=== PATIENT | male | born 1940 | race Caucasian/White ===

== ENCOUNTER 2019-08-01 08:29 | Day surgery (SDC) | payer OTHER ==
[~2019-08-01] VITALS: Ht 172.7 cm; Wt 90.7 kg
--- NOTE | ~2019-08-01 | O ---
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 PROCEDURE: Bilateral lower lid ectropion repair with transconjunctival left lower lid and cheek lift. SURGEON: Elmer Azevedo MD CONFIGURATION MANAGEMENT ADVISOR: None. ANESTHESIA: MAC. COMPLICATIONS: None. 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 He presents today for a bilateral lower lid procedure in conjunction with a left cheek procedure in order to improve his ocular surface milieu. Informed consent was obtained to include but not limited to the potential risk for loss of vision, bleeding, infection, failure to improve the problem, the potential need for further surgery or treatment. DESCRIPTION OF PROCEDURE: The patient was taken to the operating room where 2% Xylocaine with epinephrine mixed with equal parts of 0.75% Marcaine with Wydase was administered transcutaneously to each lower lid and lateral canthus. In addition on the left side, the left cheek and the left infratemporal fossa were anesthetized with the same anesthetic mixture. The patient was subsequently prepped and draped in the usual sterile fashion. The left lateral canthus was then clamped with a Bain clamp. [facility] [place] [address] OPERATIVE REPORT Name: YASMEEN LUDWIG Fede Room #: 150-1 [facility]#: [id number] Admission: 08/01/19 Attend Phys: Elmer Azevedo MD Discharge: Date of : 36 Report #: [id number] canthotomy and cantholysis was then performed removing the lash bearing portion of the redundant lid margin and the redundant tarsal plate. Hemostasis was then re-achieved. Attention was then turned to the left lower lid and cheek lift. A transconjunctival incision was then made below the inferior border of the tarsal plate on the left side. The dissection was then carried out primarily using sharp dissection techniques into the premalar tissues. Hemostasis was re-achieved. The lower lid and cheek tissues were then elevated and resuspended with interrupted mattress 5-0 chromic sutures. The lower lid and cheek lifted well. Attention was then turned to completion of the ectropion repair. The tarsal strip was secured to the internal portion of the lateral orbital tubercle with interrupted 5-0 Prolene sutures. The subcutaneous structures and the skin were then closed with interrupted 6-0 plain gut sutures. The right lateral canthus was then clamped with a Bain clamp. A sharp canthotomy cantholysis was then performed. A tarsal strip was then prepared laterally removing the lash bearing portion of the redundant lid margin and the redundant tarsal plate. Hemostasis was then re-achieved. A tarsal strip was then prepared laterally removing the lash bearing portion of the redundant lid margin and the redundant tarsal plate. Hemostasis was achieved once more. The tarsal strip was then secured to the internal portion of the lateral orbital tubercle with interrupted 5-0 Prolene sutures. The subcutaneous structures and the skin were then closed with interrupted 6-0 plain gut sutures. The wounds were then cleaned and dressed with erythromycin ophthalmic ointment. The patient subsequently transported to the recovery area having tolerated the procedure well with no anesthetic or operative complications being noted. By: [id number] Elmer Azevedo MD /nt
[~2019-08-01 08:29] MED LIST: AMITRIPTYLINE H10 M3 PO; LYRICA150 MG PO; PRESERVISION A1 EAC2 PO; REQUIP XL2 MG PO; ZESTRIL20 MG PO
[2019-08-01 09:50] VITALS: BP 122/47
== END 2019-08-01 12:50 | disposition home or self-care (01) ==
LOC: OR 08:29 → TBA 08:34 → OR 11:03
DX: H02.105 Unspecified ectropion of left lower eyelid (principal); H02.102 Unspecified ectropion of right lower eyelid; H02.535 Eyelid retraction left lower eyelid; H02.205 Unspecified lagophthalmos left lower eyelid; H18.9 Unspecified disorder of cornea; I10 Essential (primary) hypertension; G47.30 Sleep apnea, unspecified; K21.9 Gastro-esophageal reflux disease without esophagitis; G62.9 Polyneuropathy, unspecified; Z98.890 Other specified postprocedural states; Z79.899 Other long term (current) drug therapy; Z85.828 Personal history of other malignant neoplasm of skin; Z85.46 Personal history of malignant neoplasm of prostate; Z98.41 Cataract extraction status, right eye; Z98.42 Cataract extraction status, left eye; Z88.2 Allergy status to sulfonamides
CPT/HCPCS: 50010; 50101; 50386; 50398; 51636; 56527; 56531; 62110; 62850; 70005

== ENCOUNTER → 2020-01-02 | Day surgery (SDC) | payer OTHER ==
[~2020-01-02] VITALS: Ht 175.3 cm; Wt 90.7 kg
[~2020-01-02] MED LIST changes: +CARVEDILOL12.5 MG PO; +LOVASTATIN40 MG PO
[2020-01-02 09:12] VITALS: BP 152/66
--- NOTE | 2020-01-06 06:26 | O ---
[facility] [place] [address] OPERATIVE REPORT Name: YASMEEN LUDWIG Room #: [facility].#: [id number] Admission: 01/02/20 Attend Phys: Elmer Azevedo MD Discharge: Date of : 38 Report #: [id number] THIS REPORT FOR: cc: CICI YO Physician not on staff Elmer Azevedo MD ~ CC: Dr. Noel Garcia M Physician staff CICI Azevedo DATE OF SERVICE: 01/02/2020 SURGEON: Elmer Azevedo MD WRITER EDITOR: None. PREOPERATIVE DIAGNOSIS: Bilateral upper lid dermatochalasia with superior visual field defect. POSTOPERATIVE DIAGNOSIS: Bilateral upper lid dermatochalasia with superior visual field defect. OPERATION PERFORMED: Bilateral upper lid functional blepharoplasty. ANESTHESIA: Local with IV sedation. COMPLICATIONS: None. INDICATIONS FOR SURGERY: This patient has acquired upper lid dermatochalasia with superior visual field loss both eyes because of excessive upper lid tissues to include skin and fat. Visual field testing demonstrates dense superior visual defects. Retesting with the upper lid elevated shows an improvement in visual field loss of over 30% and in excess of 12 degrees. The current procedures are undertaken in order to improve the patient's visual function. Informed consent was obtained to include but not limited to the loss of vision, bleeding, infection, scarring, failure to improve the problem and need for further surgery. DESCRIPTION OF OPERATION: The patient was taken to the operating room, where 2% Xylocaine with epinephrine mixed with equal parts of 0.75% Marcaine with Wydase was administered transcutaneously to each upper lid. The patient was then prepped and draped in the usual sterile fashion and a skin-marking pen was then [address] [address] OPERATIVE REPORT Name: NADEEMNNAMDIYASMEEN J Room #: [facility].#: [id number] Admission: 01/02/20 Attend Phys: Elmer Azevedo MD Discharge: Date of : 38 Report #: [id number] utilized to outline an upper lid crease that was symmetrical on each side. Graefe forceps were then used to quantitate the redundant upper lid skin and it was similarly outlined. The incisions were then made with Jenny scissors and a skin-muscle flap removed from each side with high-temp cautery. Hemostasis was achieved with the monopolar cautery as it was throughout the case. The orbital septum was then identified and the central and medial fat pads were inspected. The redundant soft tissue was then sculpted with the monopolar cautery. The upper lid crease was then reformed with tightening of the pretarsal orbicularis muscle. The upper lid crease was then further reformed with multiple interrupted 6-0 chromic sutures. The skin was then closed with a running 6-0 plain gut suture. The wound was then cleaned and dressed with ophthalmic antibiotic ointment and a nonstick dressing. The patient was transported to the recovery area, where cold compresses were applied, having tolerated the procedure well with no anesthetic or operative complications being noted. <ELECTRONICALLY SIGNED> By: Elmer Azevedo MD 01/06/20 0626 [id number] Elmer Azevedo MD /nt
== END | disposition home or self-care (01) ==
LOC: OR 08:25
PROVIDERS: ATTEND Ophthalmology
DX: H02.831 Dermatochalasis of right upper eyelid (principal); H02.834 Dermatochalasis of left upper eyelid; H53.462 Homonymous bilateral field defects, left side; H53.461 Homonymous bilateral field defects, right side; I10 Essential (primary) hypertension; K21.9 Gastro-esophageal reflux disease without esophagitis; G47.30 Sleep apnea, unspecified; Z98.890 Other specified postprocedural states; Z79.899 Other long term (current) drug therapy; Z85.828 Personal history of other malignant neoplasm of skin; Z85.46 Personal history of malignant neoplasm of prostate; Z90.49 Acquired absence of other specified parts of digestive tract; Z96.641 Presence of right artificial hip joint; Z98.41 Cataract extraction status, right eye; Z98.42 Cataract extraction status, left eye; Z88.2 Allergy status to sulfonamides
CPT/HCPCS: 50010; 50101; 50386; 50398; 51636; 56531; 62110; 62850; 70005